=== PATIENT | female | born 1985 | race Caucasian/White ===

== ENCOUNTER → 2018-10-14 07:01 | Outpatient (CLI) | payer OTHER, SELFPAY ==
[2018-10-14 07:48] LABS: Glucose GTT-Gestation. Fasting 93 mg/dL (<105)
[2018-10-14 08:55] LABS: Glucose GTT-Gestational 1 Hr 177 mg/dL (<190)
[2018-10-14 10:30] LABS: Glucose GTT-Gestational 2 Hr 134 mg/dL (<165)
[2018-10-14 12:02] LABS: Glucose GTT-Gestational 3 Hr 71 L (<145)
== END ==
LOC: LAB 07:07
PROVIDERS: Family Provider Family Medicine; PCP Family Medicine; Referring Provider Obstetrics & Gynecology; Visit Provider Obstetrics & Gynecology
DX: O24.912 Unspecified diabetes mellitus in pregnancy, second trimester (principal); Z3A.00 Weeks of gestation of pregnancy not specified
CPT/HCPCS: 36415; 82951; 82952

== ENCOUNTER 2018-12-11 14:50 | Inpatient (IN) | payer OTHER, SELFPAY ==
[2018-12-11] MEDS: Lactated Ringers 1,000 ML 200 ML IV (15:25)
[2018-12-11] MEDS: Lactated Ringers 500 ML 999 ML IV (15:26)
[2018-12-11 15:42] LABS: Absolute Lymphocyte Count 1.23 X10^3/uL (0.83-4.51); Absolute Neutrophil Count 7.2 X10^3/uL (2.0-7.7); Basophil# 0.02 X10^3/uL; Basophil% 0.2 % (0-1); Eosinophil# 0.18 X10^3/uL; Eosinophils% 1.9 % (0-5); Hematocrit 37.1 % (37-47); Hemoglobin 12.1 g/dL (12.0-15.0); Lymphocyte # 1.23 X10^3/ul (4.0); Lymphocyte % 12.9 % (19-41); Mean Corp Hgb Conc 32.6 g/dL (32-36); Mean Corpuscular Hgb 28.7 pg (27.0-32.0); Mean Corpuscular Volume 88.1 fL (81-99); Monocyte# 0.87 X10^3/uL; Monocyte% 9.1 % (0-10); NRBC Flagged by Analyzer 0 % (0-5); Neutrophil # 7.18 X10^3/uL (2.7-7.7); Neutrophil % 75.2 % (47-70); Platelet Count 232 K/mm3 (150-450); RBC Distribution Width CV 13.6 % (11.6-14.6); RBC Distribution Width SD 43.7 fl (35.1-43.9); Red Blood Count 4.21 M/mm3 (4.2-5.4); White Blood Count 9.6 K/mm3 (4.4-11.0)
[2018-12-11] MEDS: fentaNYL-bupivacaine (epidural) 100 ML BAG EPIDURAL (16:28)
[2018-12-11 16:53] VITALS: BMI 38.9
--- NOTE | 2018-12-11 17:01 | HP.PCM_ITS ---
History and Physical Date of Admission: 12/11/18 OB HISTORY AND PHYSICAL EXAMINATION History of this : 33 yo female Ab0 with EDC 12/13/2018 by 9 weeks 3 days Ultrasound, presents to Labor and Delivery from office in early labor. care remarkable for - Rubella - 05/13/18 Group B Strep - Negative 11/20/18 1.) Carmen POZO for delivery 2.) Elevated 1 hour PG (141); schedule 3 hour GTT, 3.) MSAFP and CF testing declined 4.) , Possible PP depression after her son's ., 5.) Hx of Hypoglycemia 6.) Enlarged thyroid Pertinent Past Medical History: as above. Allergies: No Known Allergies Medications: During - Daily Multivitamin-Minerals tablet; triamcinolone acetonide 0.1 % topical ointment; 28 mg-800 mcg tablet Review of Systems: Painful contractions. PAST HISTORY: Breast/Ovarian/Colon Cancers - Denies Infections - Chicken pox and HPV Illnesses - none Accidents - no injuries of consequence History of Abnormal PAPS - YES and LGSIL APPRX 2- Hospitalizations - Childbirth Enlarged Thyroid 04/2018; SURGICAL HISTORY: 1. 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 Breathing through, concentrating through UCs. Vital Signs: AF, VSS Heart: RRR without rubs or gallops Lungs: CTA x 2 Breasts: deferred Abdomen: gravid Pelvis: Cervix: 4/100/BBOW Presentation: cephalic Fetus: Size: AGA Movement: present Heart: present Impression /Plan: Intrauterine . Admit in early labor. Plans epidural.
--- NOTE | 2018-12-11 17:22 | PCM.PN.BLA ---
Progress Note LABOR PROGRESS NOTE Comfortable after epidural AVSS CX: /BBOW -2 AROM clear fluid. Full bladder noted. mFoley placed EFM 1130-140s avg variability. Accels noted Category I tracing UCs q 3 mins at times A/P: 39 5/7 wk EGA early labor. AROM Roper. Adequate progress. watch tolerance of labor and descent. Anticipate
[2018-12-11] MEDS: Mag Hydrox/Al Hydrox/Simeth 30 ML UDC PO (18:39)
[2018-12-11] MEDS: Ondansetron 4 MG/2 ML Vial IV (18:55)
[2018-12-11] MEDS: Oxytocin 30 units/NS 500 ml 30 UNITS/500 ML IV.SOLN 334 UNITS IV (19:19)
--- NOTE | 2018-12-11 19:30 | DCINST_ITS ---
Discharge Diet: No Restrictions Discharge Activity: May Shower, May Take a Tub Bath May resume sexual activity in: 4-6 weeks Additional Activity Instructions:: Nothing in the vagina for 4-6 weeks. You may return to work/school in 6 weeks. Additional Instructions: If you experience any of the following, contact your healthcare provider. * Bleeding that soaks a pad every hour for 2 hours * Fever 100.4 or higher * Unrelieved abdominal pain * Problems urinating (including inability to urinate or burning while urinating). * Visual changes * Severe headache * Flu-like symptoms * Pain or redness in one of both of your breasts * Pain, warmth, tenderness or swelling in your legs, especially the calf area * Frequent nausea and vomiting * Symptoms of depression or anxiety If you experience any of the following, call 911 or go to the nearest Emergency Room. * Chest pain * Problems breathing * Seizure activity * Partial or complete paralysis of a body part, slurred speech, weakness or drooping of the face, or a sudden inability to walk or hold your balance Allergies/Adverse Reactions: Allergies No Known Allergies Allergy (Verified 09/29/16 08:22) Medications to take at Discharge Vits [Prenatabs FA] 1 tablet PO DAILY 09/29/16 Please Follow Up With: Rl Rojas MD - [phone] When: Call to make an appointment with your doctor in 6 weeks. Primary Care Physician: Zev Mcclellan MD [Primary Care Provider] - Test Results: Test results from this visit will be discussed in further detail at your follow- up appointment, if applicable. Proposed Discharge Date: 12/13/18
--- NOTE | 2018-12-11 19:30 | PCM.DCVAG ---
Discharge Diet: No Restrictions Discharge Activity: May Shower, May Take a Tub Bath May resume sexual activity in: 4-6 weeks Additional Activity Instructions:: Nothing in the vagina for 4-6 weeks. You may return to work/school in 6 weeks. Additional Instructions: If you experience any of the following, contact your healthcare provider. Bleeding that soaks a pad every hour for 2 hours Fever 100.4 or higher Unrelieved abdominal pain Problems urinating (including inability to urinate or burning while urinating). Visual changes Severe headache Flu-like symptoms Pain or redness in one of both of your breasts Pain, warmth, tenderness or swelling in your legs, especially the calf area Frequent nausea and vomiting Symptoms of depression or anxiety If you experience any of the following, call 911 or go to the nearest Emergency Room. Chest pain Problems breathing Seizure activity Partial or complete paralysis of a body part, slurred speech, weakness or drooping of the face, or a sudden inability to walk or hold your balance Allergies/Adverse Reactions: Allergies No Known Allergies Allergy (Verified 09/29/16 08:22) Medications to take at Discharge Vits [Prenatabs FA] 1 tablet PO DAILY 09/29/16 Please Follow Up With: Rl Rojas MD - [phone] When: Call to make an appointment with your doctor in 6 weeks. Primary Care Physician: Zev Mcclellan MD [Primary Care Provider] - Test Results: Test results from this visit will be discussed in further detail at your follow-up appointment, if applicable. Proposed Discharge Date: 12/13/18
--- NOTE | 2018-12-11 19:31 | PCM.OPRPT ---
Vaginal Delivery Maternal Presentation: Active Labor Amniotic Membrane Rupture Type: Artificial Amniotic Fluid Description: Clear Final NESTOR: 12/13/18 Gestational age: 39 Weeks and 5 Days Date of Procedure: 12/11/18 Pre-Operative Diagnosis: 39 5/7 wk labor Post-Operative Diagnosis: same Surgery/ Procedure Performed: Spontaneous Vaginal Delivery Type of Anesthesia: Epidural Description of Procedure: of a leal viable female over midline episiotomy without extension. Head delivered HERVE. No nuchal cord. Shoulders delivered easily. Infant with spont cry to maternal abdomen. delayed cord clamping and cord then clamped times two and cut. PP exam; Midline episiotomy repaired to hemostatic , intact with 3-0 Vicryl Rapide. No other lacerations noted Placenta delivered by spont expulsion, expression. 3V normal appearing and intact with trailing membranes. Ray Keerthi and needle counts correct times two EBL 350 cc Pt an tolerated delivery well to recovery, stable condition. Presentation: Vertex, HERVE Placental Delivery Description: Spontaneous, Expressed Placenta Disposition: [facility] Cord Vessel Description: 3 Vessels Cord Entanglement: None Drain: Roper to straight drain Estimated Blood Loss: 350 Infant A gender: Female (1 minute): 8 (5 minute): 9 Episiotomy Description: Midline Medications given after delivery: IV Pitocin Complications: None
[2018-12-11] MEDS: Ibuprofen 600 MG Tablet PO (21:50)
[2018-12-11 23:10] VITALS: BP 124/65; PULSE 117; RESP 18; TEMP 36.7
[2018-12-12 03:25] VITALS: BP 114/71; PULSE 95; RESP 17
[2018-12-12] MEDS: Ibuprofen 600 MG Tablet PO ×2 (05:50→19:29)
[2018-12-12 05:58] LABS: Hematocrit 30.7 % (37-47); Hemoglobin 10.2 g/dL (12.0-15.0); Mean Corp Hgb Conc 33.2 g/dL (32-36); Mean Corpuscular Hgb 28.8 pg (27.0-32.0); Mean Corpuscular Volume 86.7 fL (81-99); Platelet Count 183 K/mm3 (150-450); RBC Distribution Width CV 13.5 % (11.6-14.6); Red Blood Count 3.54 M/mm3 (4.2-5.4); White Blood Count 10.1 K/mm3 (4.4-11.0)
--- NOTE | 2018-12-12 06:49 | PCM.PN.OB ---
Subjective: PPD#1 Breast feeding, but nipples sore. Baby 7# 10 oz per pt. No concerns voiced other than with nursing. Plans to stay until tomorrow. - Physical Exam General: Alert, Cooperative HEENT: Atraumatic Neck: Supple Abdomen: Soft - fundus firm NT at 1 cm inferior to umbilicus Neurological: Cranial nerves II-XII grossly intact Psych/Mental Status: Normal Affect Vital Signs Temp Pulse Resp BP 98.0 F 95 17 114/71 12/11/18 23:10 12/12/18 03:25 12/12/18 03:25 12/12/18 03:25 Oxygen Delivery Method Room Air Weight: 99.79 kg Body Mass Index (BMI) 38.9 Intake and Output for Last 24 Hours 12/10/18 12/11/18 12/12/18 23:59 23:59 23:59 Intake Total 2466.67 / 2466.67 Output Total 1300 / 2600 1300 / 1300 Balance 1166.67 / -133.33 -1300 / -1300 Laboratory Tests Past 24 Hrs 12/11/18 12/11/18 12/12/18 15:30 15:30 05:45 WBC 9.6 10.1 RBC 4.21 3.54 L Hgb 12.1 10.2 L Hct 37.1 30.7 L MCV 88.1 86.7 MCH 28.7 28.8 MCHC 32.6 33.2 RDW Std Deviation 43.7 42.0 RDW Coeff of Kirstie 13.6 13.5 Plt Count 232 183 MPV 10.0 10.0 Immature Gran % (Auto) 0.700 Neut % (Auto) 75.2 H Lymph % (Auto) 12.9 L Mcculloch % (Auto) 9.1 Eos % (Auto) 1.9 Baso % (Auto) 0.2 Absolute Neuts (auto) 7.2 Absolute Lymphs (auto) 1.23 Nucleated RBC % 0 Blood Type A POSITIVE Antibody Screen NEGATIVE Medical Necessity - Tobacco Use Smoking Status: Never smoker Assessment/Plan PPD#1 Stable pp Continue care. Assist nursing. Nikita recommended.
[2018-12-12 09:20] VITALS: BP 114/75; PULSE 68; RESP 18; TEMP 36.6
[2018-12-12 15:15] VITALS: BP 134/73; PULSE 86; RESP 18; TEMP 36.6
[2018-12-12] MEDS: Senna/Docusate Sodium 1 Tablet PO (15:27)
[2018-12-12 20:00] VITALS: BP 124/72; PULSE 80; RESP 18; TEMP 36.8
[2018-12-13 01:50] VITALS: BP 112/56; PULSE 79; RESP 16
[2018-12-13] MEDS: Ibuprofen 600 MG Tablet PO (05:28)
--- NOTE | 2018-12-13 07:27 | PCM.PN.OB ---
Subjective: PPD#2 Issues with nursing , sore nipples. assistance needed. Considering supplementation. Up most of night as baby cluster feeding. - Physical Exam General: Alert, Oriented x3, Cooperative, No apparent distress HEENT: Atraumatic, EOMI Neck: Supple Abdomen: Soft - fundus firm NT at umbilicus Psych/Mental Status: Normal Affect Vital Signs Temp Pulse Resp BP 98.2 F 79 16 112/56 L 12/12/18 20:00 12/13/18 01:50 12/13/18 01:50 12/13/18 01:50 Oxygen Delivery Method Room Air Weight: 99.79 kg Body Mass Index (BMI) 38.9 Intake and Output for Last 24 Hours 12/11/18 12/12/18 12/13/18 23:59 23:59 23:59 Intake Total 2466.67 / 2466.67 Output Total 1300 / 2600 1300 / 1300 Balance 1166.67 / -133.33 -1300 / -1300 Medical Necessity - Tobacco Use Smoking Status: Never smoker Assessment/Plan PPD#2 Stable pp Assist nursing. Nikita recommended. RX called in to [facility] outpatient pharmacy for nipple cream also. Home today. RTO in 6 wk for pp check
[2018-12-13 09:08] VITALS: BP 114/75; PULSE 89; RESP 18; TEMP 36.6
[2018-12-13 14:00] VITALS: BP 121/77; PULSE 94; RESP 18; TEMP 36.2
== END 2018-12-13 14:00 | disposition home or self-care (01) | DRG 807 ==
PROVIDERS: Admitting Provider Obstetrics & Gynecology; Family Provider Family Medicine; PCP Family Medicine; Referring Provider Advanced Practice Midwife; Visit Provider Obstetrics & Gynecology
DX: O80 Encounter for full-term uncomplicated delivery (principal); Z37.0 Single live birth; Z3A.39 39 weeks gestation of pregnancy
CPT/HCPCS: 59025; 59050; 85025; 85027; 86850; 86900; 86901; 99218; J7120; G0378; J2405

== ENCOUNTER → 2023-12-02 | Outpatient (CLI) | payer OTHER, SELFPAY ==
[2023-12-07 10:07] LABS: HPV APTIMA, High Risk Negative (Negative)
[2023-12-08 09:15] LABS: HPV Reflexed? YES, CHARGE PATIENT
== END | disposition home or self-care (01) ==
LOC: LABSPEC 10:00 → LAB.FUTURE 10:52 → LABSPEC 10:52
PROVIDERS: PCP Nurse Practitioner Family; Visit Provider Nurse Practitioner Family
DX: Z12.4 Encounter for screening for malignant neoplasm of cervix (principal)
CPT/HCPCS: 87624; 88175; G0145

== ENCOUNTER → 2024-06-09 | Outpatient (CLI) | payer OTHER, SELFPAY ==
[2024-06-09 11:45] LABS: Hematocrit 41.4 % (37-47); Hemoglobin 14.5 g/dL (12.0-15.0); Mean Corpuscular Hgb 30.6 pg (27.0-32.0); Mean Corpuscular Volume 87.3 fL (81-99); Mean Platelet Vol. 9.8 fl (6.2-12.0); Platelet Count 279 K/mm3 (150-450); RBC Distribution Width CV 11.9 % (11.6-14.6); RBC Distribution Width SD 38.3 fl (35.1-43.9); Red Blood Count 4.74 M/mm3 (4.2-5.4); White Blood Count 6.9 K/mm3 (4.4-11.0)
[2024-06-09 14:46] LABS: Anion Gap 14 (5-15); BUN 14 mg/dL (4-19); BUN/Creat Ratio 17.4 RATIO (10-20); Calcium,Total 9.9 mg/dL (7.6-11.0); Carbon Dioxide 19.1 mmol/L (21.0-32.0); Chloride 103 mmol/L (98-108); Creatinine, Serum 0.79 mg/dL (0.70-1.20); EST Glomerular Filtration Rate 97 (>60); Glucose 92 mg/dL (70-99); Potassium 4.3 mmol/L (3.3-5.1); Sodium Level 136 mmol/L (133-145)
== END | disposition home or self-care (01) ==
LOC: VSLAB 09:48
PROVIDERS: PCP Nurse Practitioner Family; Visit Provider Nurse Practitioner Family
DX: E03.9 Hypothyroidism, unspecified (principal)
CPT/HCPCS: 36415; 80048; 84439; 84443; 85027